=== PATIENT | male | born 1985 | race American Indian/Alaskan Native ===

== ENCOUNTER 2021-07-07 16:50 | Emergency (ER) | payer SELFPAY ==
[2021-07-07 17:12] VITALS: BP 156/101
--- NOTE | 2021-07-07 18:07 | Emergency Department Report ---
HPI - General Chief Complaint: Abdominal Pain Time Seen by Provider: 07/07/21 17:43 - HPI HPI: MSE 1 The patient is a 36-year-old male present with a chief complaint of abdominal pain and bloating. The patient states over the past 2 to 3 days he has had a soreness in the lower abdomen as though he is retaining fluid. Patient states the soreness has been intermittent. Patient denies nausea vomiting or diarrhea. Patient denies fever or shortness of breath. The patient has a history of CHF and states he has been out of his Lasix since yesterday. ED Past Medical Hx - Past Medical History Previous Medical History?: No Hx Congestive Heart Failure: Yes Additional medical history: DEBBI - Surgical History Past Surgical History?: No Additional Surgical History: Tracheostomy - Family History Family history: no significant - Social History Smoking Status: Former Smoker (None [id number]) Substance Use Type: None (Denies illicit drug use) ED Review of Systems ROS: Stated complaint: FLUID AROUND ABD Other details as noted in HPI Constitutional: denies: fever Eyes: denies: eye pain ENT: denies: throat pain Respiratory: denies: shortness of breath Cardiovascular: denies: chest pain Endocrine: no symptoms reported Gastrointestinal: abdominal pain. denies: nausea, vomiting, diarrhea Genitourinary: denies: dysuria Musculoskeletal: denies: back pain Neurological: denies: headache Physical Exam - Physical Exam Vital Signs: Vital Signs 07/07/21 07/07/21 17:07 17:12 Temperature 98 F Pulse Rate 104 H Respiratory 16 Rate Blood Pressure 156/101 [Left] O2 Sat by Pulse 88 92 Oximetry Physical Exam: GENERAL: The patient is well-developed well-nourished male sitting in chair not appearing to be in acute distress. [] HEENT: Normocephalic. Atraumatic. Extraocular motions are intact. Patient has moist mucous membranes. NECK: Supple. Trachea midline CHEST/LUNGS: Clear to auscultation. There is no respiratory distress noted. HEART/CARDIOVASCULAR: Regular. There is no tachycardia. There is no gallop rub or murmur. ABDOMEN: Abdomen is soft, no rebound or guarding. Patient has normal bowel sounds. There is no abdominal distention. SKIN: There is no rash. There is no edema. There is no diaphoresis. NEURO: The patient is awake, alert, and oriented. The patient is cooperative. The patient has no focal neurologic deficits. The patient has normal speech MUSCULOSKELETAL: There is no evidence of acute injury. ED Course Vital Signs 07/07/21 07/07/21 17:07 17:12 Temperature 98 F Pulse Rate 104 H Respiratory 16 Rate Blood Pressure 156/101 [Left] O2 Sat by Pulse 88 92 Oximetry - Reevaluation(s) Reevaluation #1: 07/07/21 18:[address] changed to noncontrast ED Medical Decision Making - Radiology Data Radiology results: report reviewed (CT abdomen pelvis), image reviewed (CT abdomen pelvis) [facility] [address] [id number] Cat Scan Report Signed Patient: ANASTASIA LANDRY MR #: [id number] : 1985 Acct:[id number] Age/Sex: 36 / M ADM Date: 07/07/21 Loc: ED Attending Dr: Ordering Physician: TERESA GARDNER MD Date of Service: 07/07/21 Procedure(s): CT abdomen pelvis wo con Accession Number(s): [id number] cc: TERESA GARDNER MD CT ABDOMEN AND PELVIS WITHOUT CONTRAST INDICATION / CLINICAL INFORMATION: Lower abdominal pain and swelling. TECHNIQUE: Axial CT images were obtained through the abdomen and pelvis without IV contrast. All CT scans at this location are performed using CT dose reduction for ALARA by means of automated exposure control. COMPARISON: None available. FINDINGS: LOWER CHEST: The heart is moderately enlarged without a significant pericardial effusion. The lung bases are clear. LIVER: No significant abnormality. GALLBLADDER: No sign ificant abnormality. BILE DUCTS: No significant abnormality. PANCREAS: No significant abnormality. SPLEEN: No significant abnormality. ADRENALS: No significant abnormality. KIDNEYS / URETERS: No significant abnormality. STOMACH / SMALL BOWEL: No significant abnormality. COLON: No significant abnormality. APPENDIX: No significant abnormality. PERITONEUM: No free fluid. No free air. No fluid collection. LYMPH NODES: No significant adenopathy. AORTA / ARTERIES: No significant abnormality. IVC / VEINS: No significant abnormality. URINARY BLADDER: No significant abnormality. REPRODUCTIVE ORGANS: No significant abnormality. ADDITIONAL FINDINGS: Subcutaneous edema is noted throughout the abdominal wall without an associated fluid collection or other significant abnormality. There are small fat-containing noninflamed umbilical and supraumbilical hernias. A small noninflamed fat-containing left inguinal hernia is also noted. BONES: No significant abnormality. IMPRESSION: Nonspecific abdominal wall edema without other acute findings. Signer Name: Paul Torres MD Signed: 07/07/2021 7:38 PM Workstation Name: [id number] Transcribed By: AYAKA Dictated By: Paul Torres MD Electronically Authenticated By: Paul Torres MD Signed Date/Time: 07/07/211937 DD/ 33 TD/TT: Print Cancel - Differential Diagnosis CHF exacerbation, ascites, diverticulitis, Critical care attestation.: If time is entered above; I have spent that time in minutes in the direct care of this critically ill patient, excluding procedure time. ED Disposition Clinical Impression: Edema of abdominal wall Disposition: 07 LEFT AWOL/ELOPED Is pt being admited?: No Does the pt Need Aspirin: No Condition: Undetermined Time of Disposition: 20:21 (Patient eloped)
--- NOTE | 2021-07-07 19:42 | Cat Scan Report ---
CT ABDOMEN AND PELVIS WITHOUT CONTRAST INDICATION / CLINICAL INFORMATION: Lower abdominal pain and swelling. TECHNIQUE: Axial CT images were obtained through the abdomen and pelvis without IV contrast. All CT scans at [facility] location are performed using CT dose reduction for ALARA by means of automated exposure control. COMPARISON: None available. FINDINGS: LOWER CHEST: The heart is moderately enlarged without a significant pericardial effusion. The lung ba ses are clear. LIVER: No significant abnormality. GALLBLADDER: No significant abnormality. BILE DUCTS: No significant abnormality. PANCREAS: No significant abnormality. SPLEEN: No significant abnormality. ADRENALS: No significant abnormality. KIDNEYS / URETERS: No significant abnormality. STOMACH / SMALL BOWEL: No significant abnormality. COLON: No significant abnormality. APPENDIX: No significant abnormality. PERITONEUM: No free fluid. No free air. No fluid collection. LYMPH NODES: No significant adenopathy. AORTA / ARTERIES: No significant abnormality. IVC / VEINS: No significant abnormality. URINARY BLADDER: No significant abnormality. REPRODUCTIVE ORGANS: No significant abnormality. ADDITIONAL FINDINGS: Subcutaneous edema is noted throughout the abdominal wall without an associated fluid collection or other significant abnormality. There are small fat-containing noninflamed umbilic al and supraumbilical hernias. A small noninflamed fat-containing left inguinal hernia is also noted. BONES: No significant abnormality. IMPRESSION: Nonspecific abdominal wall edema without other acute findings. Signer Name: Paul Torres MD Signed: 07/07/2021 7:38 PM Workstation Name: [id number]
== END 2021-07-08 15:43 | disposition left against medical advice (07) ==
LOC: ED 16:50
DX: R60.0 Localized edema (principal); R10.30 Lower abdominal pain, unspecified; Z87.891 Personal history of nicotine dependence; Z98.890 Other specified postprocedural states; Z79.899 Other long term (current) drug therapy
CPT/HCPCS: 74176; 99283